=== PATIENT | male | born 1960 | race Caucasian/White ===

== ENCOUNTER 2020-06-15 07:49 | Day surgery (SDC) | payer BC ==
[~2020-06-15 07:49] MED LIST: Lactated Ringers 1,000 ML IV SCH; Midazolam 1 MG/ML 2 ML SDV ONE; fentaNYL 100 MCG/2 ML SDV ONE
[2020-06-15] MEDS ORDERED: Midazolam 1 MG/ML 2 ML SDV IV ONE ×7 (07:50→08:55)
[2020-06-15] MEDS ORDERED: fentaNYL 100 MCG/2 ML SDV IV ONE ×4 (07:50→09:00)
[2020-06-15] MEDS ORDERED: Dextrose 5%-0.45% NaCl 1,000 ML IV SCH (08:15)
--- NOTE | 2020-06-15 10:35 | OR ---
DATE: 06/15/2020 PREOPERATIVE DIAGNOSIS: Screening colonoscopy. POSTOPERATIVE DIAGNOSIS: Screening colonoscopy. PROCEDURE: Total colonoscopy. ANESTHESIA: Conscious sedation with IV Versed and fentanyl. SPECIMEN: None. OPERATIVE FINDINGS: Normal colonoscopy. RECOMMENDATIONS: Followup screening colonoscopy in 10 years. INDICATION FOR PROCEDURE: This 59-year-old male is here for screening colonoscopy. PROCEDURE IN DETAIL: After adequate preparation, colonoscope was inserted into the rectum. This was passed up to the splenic flexure of the colon. However, I had a very difficult time advancing this past the splenic flexure. Multiple maneuvers were used to traverse around the splenic flexure into the transverse colon, but I was not successful with the regular scope. I took the colonoscope out and we hooked up a pediatric scope. Using this scope, inserted, then I was able to traverse past the splenic flexure without too much trouble and easily then could pass the scope all the way to the cecum. Confirmation of the cecum was made by visualization of the ileocecal valve and palpation in the right lower quadrant and the light shining through the right lower quadrant. The bowel prep was good. On withdrawal of the scope, a good examination of the colon was accomplished, especially the splenic flexure area, there were no masses or abnormalities that would have explained why I could not get around the splenic flexure just seems to be fixated. This is of no consequence. The remaining part of the colon exam is normal. Air was suctioned from the colon and the scope removed. [facility] /[id number]
== END 2020-06-15 10:40 | disposition home or self-care (01) ==
LOC: DL.ENDO 07:49
PROVIDERS: ATTEND Surgery
DX: Z12.11 Encounter for screening for malignant neoplasm of colon (principal); G47.30 Sleep apnea, unspecified; Z01.812 Encounter for preprocedural laboratory examination; Z20.822 Contact with and (suspected) exposure to COVID-19; Z91.09 Other allergy status, other than to drugs and biological substances; Z79.899 Other long term (current) drug therapy
CPT/HCPCS: 45378; 87635; J2250; J3010; J7042; U0002